=== PATIENT | male | born 1950 | race American Indian/Alaskan Native ===

== ENCOUNTER 2018-03-26 14:20 | Outpatient (CLI) | payer MEDICARE ==
--- NOTE | 2018-03-26 16:25 | XRay Report ---
FINAL REPORT EXAM: XR CHEST ROUTINE 2V HISTORY: Opioid use, unspecified with unspecified opioid-induced disorder TECHNIQUE: Frontal and lateral chest x-ray. PRIORS: None. FINDINGS: Cardiac and mediastinal silhouette within normal limits. Lungs are normally expanded, without significant vascular congestion. No focal consolidation, pleural effusion or apparent pneumothorax. Bony thorax grossly unremarkable. IMPRESSION: 1. No acute findings.
== END 2018-03-26 14:21 | disposition home or self-care (01) ==
LOC: XRAY 14:20
DX: F11.99 Opioid use, unspecified with unspecified opioid-induced disorder (principal); F17.210 Nicotine dependence, cigarettes, uncomplicated; D64.9 Anemia, unspecified; F10.10 Alcohol abuse, uncomplicated; I10 Essential (primary) hypertension; E07.9 Disorder of thyroid, unspecified
CPT/HCPCS: 71046

== ENCOUNTER 2018-03-27 10:22 | Emergency (ER) | payer MEDICARE ==
[2018-03-27 10:40] VITALS: BP 157/89
--- NOTE | 2018-03-27 14:29 | Emergency Department Report ---
ED Rash HPI - HPI Chief Complaint: Extremity Problem,Nontraumatic Stated Complaint: SWOLLEN LEFT FOOT Time Seen by Provider: 03/27/18 14:28 Duration: over a month Location: Lower Extremities (right foot pain 8/10. aching with walking. intermittent. rt foot swelling) Suspected Cause: Unknown Rash Symptoms: No Itching, No Facial Swelling, No Tongue/Oral Swelling, No Breathing Difficulties, No Choking Sensation, No Wheezing/Dyspnea, No Peeling, No Blistering, No Fever ED Review of Systems ROS: Stated complaint: SWOLLEN LEFT FOOT Other details as noted in HPI Constitutional: denies: chills, fever Eyes: denies: eye pain ENT: denies: ear pain, throat pain Respiratory: denies: cough, shortness of breath, SOB with exertion, SOB at rest , stridor, wheezing Cardiovascular: edema. denies: chest pain, palpitations, dyspnea on exertion, syncope Gastrointestinal: denies: nausea, vomiting Musculoskeletal: arthralgia. denies: back pain, myalgia Skin: denies: rash, lesions Neurological: denies: headache, weakness, numbness, paresthesias, confusion, abnormal gait, vertigo ED Past Medical Hx - Past Medical History Previous Medical History?: Yes Hx Hypertension: Yes Hx Liver Disease: Yes (hep c) Additional medical history: BPH - Surgical History Past Surgical History?: No - Family History Family history: hypertension - Social History Smoking Status: Current Every Day Smoker Substance Use Type: Heroin, Marijuana - Medications Home Medications: Home Medications Medication Instructions Recorded Confirmed Last Taken Type Tamsulosin [Flomax] 0.4 mg PO QDAY 10/31/14 07/01/15 Unknown History Ibuprofen [Motrin] 600 mg PO Q8H PRN #12 tablet 03/27/18 Unknown Rx Rash Exam - Exam General: Vital signs noted. No distress. Alert and acting appropriately. This is a 67-year-old male well-nourished well-developed in no acute distress. Patient is nontoxic in appearance HEENT: No Periorbital Edema, No Conjuctival Injection, No Chemosis, No Perioral Edema, No Tongue Edema, No Uvular Edema, No Compromised Airway, No Drooling Lungs: Yes Good Air Exchange (CTAB), No Wheezes, No Ronchi, No Stridor, No Cough , No Labored Respirations, No Retractions, No Use of Accessory Muscles, No Other Abnormal Lung Sounds Heart: Yes Regular (S1, S2. Regular rate and rhythm), No Murmur Skin: Yes Tenderness (sole of right foot), Yes Other (patient with callus the sole of right foot and bunion to great toe area. No edema to the foot. ), No Urticarial Rash, No Maculopapular Rash, No Morbilliform rash, No Bulla(e), No Excoriations, No Weeping, No Erythema, No Edema, No Encrustations Other: Positive: Abdomen Normal, Neurologic Normal (alert and oriented 3, GCS is 15 and gait is normal), Musculoskeletal Normal (no clubbing, cyanosis or edema. +2 pulses to all extremities and no neurovascular compromise. Chest 5 strength in all extremities. Full range of motion to all extremities) ED Course Vital Signs 03/27/18 10:33 Temperature 98.1 F Pulse Rate 93 H Respiratory 16 Rate Blood Pressure 157/89 O2 Sat by Pulse 98 Oximetry - Reevaluation(s) Reevaluation #1: 03/27/18 15:26 He did not want anything for pain ED Medical Decision Making - Medical Decision Making Patient has been evaluated by this provider in fast track he is in stable condition and found to have simple callus that is soft to right sole and bunion beside right great toe. He has no edema and is extremity exam was normal. I discussed diagnosis and treatment plan the patient. He did not want any x-ray and did not want any pain medication. Patient voiced understanding of discharge instruction and I also told them that he'll need to go to foot specialists for further evaluation and treatment. Patient referred to emt/dispatcher Dr. Edge He refused medication and x-ray. Patient educated on insole such as Dr. Andrea's to put an issue for comfort. I discussed with him that if his condition worsens to return to the emergency room, otherwise follow up with emt/dispatcher. - Differential Diagnosis gout, cellulitis, callus, bunion, musculoskeletal pain Critical care attestation.: If time is entered above; I have spent that time in minutes in the direct care of this critically ill patient, excluding procedure time. ED Disposition Clinical Impression: Foot callus, Bunion of right foot, Arthralgia of right foot Disposition: - TO HOME OR SELFCARE Is pt being admited?: No Does the pt Need Aspirin: No Condition: Stable Instructions: Arthralgia (ED), Bunion (ED) Additional Instructions: Please follow up with as instructed Wear Dr. Parker insoles Take Motrin if needed for pain You have callus buildup which is abnormal thickening in the left outer layer. Prescriptions: Ibuprofen [Motrin] 600 mg PO Q8H PRN #12 tablet PRN Reason: Pain Referrals: AMBREEN EDGE DPM [Staff Physician] - 03/30/18 PRIMARY CARE, [Primary Care Provider] - 2-3 Days
== END 2018-03-27 15:42 | disposition home or self-care (01) ==
LOC: ED 10:22
DX: M21.611 Bunion of right foot (principal); M25.774 Osteophyte, right foot; I10 Essential (primary) hypertension; F17.200 Nicotine dependence, unspecified, uncomplicated; F12.90 Cannabis use, unspecified, uncomplicated
CPT/HCPCS: 99282